=== PATIENT | male | born 1950 | race Caucasian/White ===

== ENCOUNTER → 2018-04-13 09:09 | Outpatient (CLI) | payer MEDICARE, OTHER, SELFPAY ==
--- NOTE | 2018-04-13 10:00 | MRI_ITS ---
STUDY: MRI BRAIN WITHOUT CONTRAST REASON FOR EXAM: Male, 67 years old. ataxia; PLEASE COMMENT ON PERIAQUEDUCTAL AREA AND MAMMILLARY BODIES ; PT WITH HISTORY OF ALCOHOL ABUSE TECHNIQUE: Standardized multiplanar fat and water weighted pulse sequences were obtained. COMPARISON: November 10, 2012 FINDINGS: Normal size of the ventricles and extra-axial spaces for the patient's age. Normal white matter tracts of the supratentorial brain. Normal bilateral basal ganglia. Normal thalami. There is no extra-axial fluid accumulation. Normal flow voids within the major intracranial circulation suggesting patency by spin echo criteria. Normal sella turcica, pituitary gland, infundibular stalk, optic chiasm and hypothalamus. Normal tectal plate and pineal gland. A mammillary body is seen on series 3 image 14 and appears normal. The mamillary bodies are not seen on any other sequence due to their small size. The periaqueductal desouza matter is normal. Normal midbrain, crow and medulla. Normal cerebellum. Normal basal cisterns. Normal bilateral temporal bones. Normal bilateral internal auditory canals. No demonstrated orbital abnormality, within the constraints of a routine brain study. Normal visualized paranasal sinuses. Normal calvarium and skull base. Normal visualized soft tissue structures. Normal visualized upper cervical spine. MRI/Brain without Contrast IMPRESSION: Involutional changes of the brain, as described above. Electronically Signed: Laura Arroyo MD at 10:47 EDT , Service support ,
== END ==
PROVIDERS: Family Provider Internal Medicine; PCP Internal Medicine; Visit Provider Psychiatry & Neurology Neurology
DX: R27.0 Ataxia, unspecified (principal)
CPT/HCPCS: 70551

== ENCOUNTER 2021-11-11 11:58 | Outpatient (CLI) | payer MEDICARE, OTHER, SELFPAY ==
--- NOTE | 2021-11-11 12:06 | MRI_ITS ---
STUDY: MRI ABDOMEN WITH AND WITHOUT CONTRAST REASON FOR EXAM: Male, 71 years old. CIRRHOSIS TECHNIQUE: Standardized fat and water weighted pulse sequences were obtained in all 3 orthogonal planes post contrast administration. IV Yes YES was administered for the contrast portion of the examination. COMPARISON: None. FINDINGS: The visualized lung bases are unremarkable. The visualized portions of the heart are within normal limits. There is a diffuse contour abnormality of the liver consistent with cirrhotic changes. There are multiple gallstones. There is mild splenomegaly. Normal pancreas. Normal bilateral adrenal glands. 2 cm partially exophytic cyst of the posterior cortex of the midsection of right kidney. Normal left kidney. Normal visualized stomach. Normal small intestine. Normal colon. The appendix is visualized and appears normal. Normal abdominal aorta. Normal inferior vena cava. Normal retroperitoneum. Normal abdominal wall. Normal osseous structures. MRI/MRI Abd WITH and W/O Contrast IMPRESSION: 1. Cirrhosis. No hepatic mass. 2. Cholelithiasis. 3. Mild splenomegaly consistent with portal hypertension. Electronically Signed: Konrad Mullen MD at 14:21 EST Tel , Service support ,
[2021-11-12 07:46] LABS: CREATININE FINGERSTICK < 0.6 mg/dL (0.70-1.30); EGFR FINGERSTICK > 60.0000 mL/min (>60)
== END 2021-11-11 23:59 | disposition short-term general hospital (02) ==
LOC: MRI 12:00
PROVIDERS: PCP Internal Medicine; Visit Provider Internal Medicine Gastroenterology
DX: K74.60 Unspecified cirrhosis of liver (principal)
CPT/HCPCS: 74183; A9575; A4216

== ENCOUNTER → 2022-06-04 | Outpatient (CLI) | payer MEDICARE, OTHER, SELFPAY ==
[2022-06-04 15:01] LABS: Hematocrit 44.9 % (40-54); Hemoglobin 15.5 g/dL (13.0-16.5); Mean Corp Hgb Conc 34.5 g/dL (32-36); Mean Corpuscular Hgb 28.9 pg (27.0-32.0); Mean Corpuscular Volume 83.6 fL (80-94); Platelet Count 144 K/mm3 (150-450); RBC Distribution Width CV 14.2 % (11.6-14.6); RBC Distribution Width SD 43.2 fl (35.1-43.9); Red Blood Count 5.37 M/mm3 (4.6-6.2); White Blood Count 4.5 K/mm3 (4.4-11.0)
[2022-06-04 15:13] LABS: International Normalized Ratio 1.1; Prothrombin Time (Protime)PT. 13.4 SECONDS (11.7-14.9)
[2022-06-04 15:19] LABS: ALB/GLOB Ratio 1.1 RATIO (0.9-2.4); AST(SGOT) 27 U/L (15-37); Alanine Aminotransfer ALT/SGPT 25 U/L (16-61); Alkaline Phosphatase 60 U/L (45-117); Anion Gap 7 (5-15); BUN 8 mg/dL (7-18); Calcium,Total 9.2 mg/dL (8.5-10.1); Chloride 100 mmol/L (98-107); Creatinine, Serum 0.67 mg/dL (0.70-1.30); EST Glomerular Filtration Rate 124 mL/min (>60); Est Glom Filt Rate - Afr Amer 149 mL/min (>60); Globulin 3.6 g/dL (2.2-4.2); Glucose 97 mg/dL (74-106); Potassium 4.2 mmol/L (3.5-5.1); Protein, Total 7.6 g/dL (6.4-8.2); Sodium Level 135 mmol/L (136-145)
[2022-06-04 15:56] LABS: Hepatitis C Antibody Non-Reactive (Nonreactive)
[2022-06-06 10:53] LABS: AFP, Tumor Marker 4.8 ng/mL (0.0-8.4)
== END | disposition home or self-care (01) ==
LOC: MTLAB 11:49
PROVIDERS: PCP Internal Medicine; Referring Provider Internal Medicine Gastroenterology; Visit Provider Internal Medicine Gastroenterology
DX: K74.60 Unspecified cirrhosis of liver (principal)
CPT/HCPCS: 36415; 80053; 82105; 85027; 85610; 85730; 86803

== ENCOUNTER → 2022-10-01 | Outpatient (CLI) | payer MEDICARE, OTHER, SELFPAY ==
[2022-10-01 12:14] LABS: Hematocrit 38.1 % (40-54); Hemoglobin 13.4 g/dL (13.0-16.5); Mean Corp Hgb Conc 35.2 g/dL (32-36); Mean Corpuscular Hgb 30.9 pg (27.0-32.0); Mean Platelet Vol. 10.4 fl (6.2-12.0); Platelet Count 159 K/mm3 (150-450); RBC Distribution Width CV 14.8 % (11.6-14.6); RBC Distribution Width SD 47.7 fl (35.1-43.9); Red Blood Count 4.33 M/mm3 (4.6-6.2); White Blood Count 4.7 K/mm3 (4.4-11.0)
[2022-10-01 12:31] LABS: International Normalized Ratio 1.2; Prothrombin Time (Protime)PT. 15.1 SECONDS (11.7-14.9)
[2022-10-01 12:36] LABS: AST(SGOT) 237 U/L (15-37); Alanine Aminotransfer ALT/SGPT 151 U/L (16-61); Albumin, Serum 3.8 g/dL (3.2-5.0); Alkaline Phosphatase 80 U/L (45-117); Bilirubin, Direct 0.86 mg/dL (0.00-0.30); GGTP 652 U/L (15-85); Globulin 2.6 g/dL (2.2-4.2); Protein, Total 6.4 g/dL (6.4-8.2)
[2022-10-02 09:02] LABS: AFP, Tumor Marker 3.9 ng/mL (0.0-8.4)
== END | disposition home or self-care (01) ==
LOC: MTLAB 10:54
PROVIDERS: PCP Internal Medicine; Referring Provider Internal Medicine Gastroenterology; Visit Provider Internal Medicine Gastroenterology
DX: K74.60 Unspecified cirrhosis of liver (principal)
CPT/HCPCS: 36415; 80076; 82105; 82977; 85027; 85610; 85730

== ENCOUNTER → 2023-01-22 | Outpatient (CLI) | payer MEDICARE, OTHER, SELFPAY ==
--- NOTE | 2023-01-22 07:12 | US_ITS ---
INDICATION: CIRRHOSIS EXAMINATION: Ultrasound US Abdomen Limited (quadrant) TECHNIQUE: Clark-scale and color Doppler imaging was performed of the abdomen. COMPARISON: Liver ultrasound October 21, 2016. FINDINGS: LIVER: Nodular contour and coarsened echotexture throughout the liver nodular contour and coarsened echotexture consistent with cirrhotic liver. No focal hepatic lesion. No intrahepatic biliary ductal dilatation. GALLBLADDER AND BILIARY TREE: No shadowing gallstone, pericholecystic fluid or gallbladder wall thickening is demonstrated. There is minimal sludge. The proximal common bile duct measures 5, which is within normal limits for the patient''s age. SONOGRAPHIC CANALES''S SIGN: Negative. PANCREAS: No abnormality is within limits of the exam. Pancreas is suboptimally visualized. KIDNEY: Right kidney measures 12.6 cm in length and shows normal contour and echogenicity. No cortical thinning. 7 x 7 x 6 mm echogenic focus mid right kidney central parenchyma likely represents angiomyolipoma, unchanged compared to prior exam. VESSELS: Normal direction color flow in the portal vein. , Aorta is normal diameter. There is no free fluid. US/Abdomen Limited IMPRESSION: Cirrhotic liver with no focal mass lesion. Trace sludge in the gallbladder crushable clinical significance. Subcentimeter echogenic focus right kidney likely representing angiomyolipoma. Electronically Signed: Bijan Garcia DO at 23:24 EDT ,
== END | disposition home or self-care (01) ==
LOC: US 07:10
PROVIDERS: PCP Internal Medicine; Referring Provider Internal Medicine Gastroenterology; Visit Provider Internal Medicine Gastroenterology
DX: K74.60 Unspecified cirrhosis of liver (principal)
CPT/HCPCS: 76705

== ENCOUNTER → 2023-04-07 | Outpatient (CLI) | payer MEDICARE, OTHER, SELFPAY ==
--- NOTE | 2023-04-07 08:40 | ART_ITS ---
Reason For Study: Abnormal GUILLERMO bilateral Procedure A bilateral lower extremity continuous wave Doppler with analog waveform analysis,segmental pressures,and ankle brachial indexes with exercise. Left Segmental Pressures Left brachial= 139mmHg. Left posterior tibial artery = 156mmHg. Left dorsalis pedis artery = 152mmHg. Left digit = 157 mmHg. The left posterior tibial artery waveforms are triphasic. The left dorsalis pedis waveforms are triphasic. Right Segmental Pressures Right brachial= 135mmHg. Right posterior tibial artery = 128mmHg. Right dorsalis pedis artery = 1.16mmHg. Right digit = 1.24 mmHg. The right posterior tibial artery waveforms are triphasic. The right dorsalis pedis waveforms are triphasic. Indices The right ankle brachial index by the posterior tibial artery is 0.92. The right ankle brachial index by the dorsalis pedis is 1.16. The right digital-brachial index is 1.24. The left ankle brachial index by the posterior tibial artery is 1.12. The left ankle brachial index by the dorsalis pedis is 1.09. The left digital-brachial index is 1.13. VL/Lower Ext Art Exam w/ Exercise Interpretation Summary Right GUILLERMO 1.16, normal. TBI and Doppler/PVR waveforms of the right leg normal a t rest. Right lower extremity exhibits normal response to exercise. Left GUILLERMO 1.12, normal. TBI and Doppler/PVR waveforms of the left leg normal at rest. Left lower extremity exhibits normal response to exercise. Ordering Physician: Radha Andres Referring Physician: Radha Andres M.D. Performed By: Mykel Carbajal RVT
== END | disposition home or self-care (01) ==
LOC: CVS 08:38
PROVIDERS: PCP Internal Medicine; Referring Provider Internal Medicine; Visit Provider Internal Medicine
DX: I73.9 Peripheral vascular disease, unspecified (principal); R68.89 Other general symptoms and signs
CPT/HCPCS: 93924

== ENCOUNTER → 2025-01-27 | Outpatient (CLI) | payer MEDICARE, OTHER, SELFPAY ==
[2025-01-27 15:38] LABS: Hematocrit 41.8 % (40-54); Hemoglobin 14.7 g/dL (13.0-16.5); Mean Corp Hgb Conc 35.2 g/dL (32-36); Mean Corpuscular Hgb 31.1 pg (27.0-32.0); Mean Corpuscular Volume 88.6 fL (80-94); Mean Platelet Vol. 10.6 fl (6.2-12.0); Platelet Count 134 K/mm3 (150-450); RBC Distribution Width CV 13.3 % (11.6-14.6); RBC Distribution Width SD 43.1 fl (35.1-43.9); Red Blood Count 4.72 M/mm3 (4.6-6.2); White Blood Count 5.8 K/mm3 (4.4-11.0)
[2025-01-27 15:43] LABS: International Normalized Ratio 1.2; Prothrombin Time (Protime)PT. 15.1 SECONDS (11.7-14.9)
[2025-01-27 15:45] LABS: Partial Thromboplast Time 32.9 Seconds (24.1-36.2)
[2025-01-27 16:15] LABS: ALB/GLOB Ratio 1.5 RATIO (0.9-2.4); AST(SGOT) 31 U/L (<=37); Alanine Aminotransfer ALT/SGPT 17 U/L (<=46); Albumin, Serum 4.4 g/dL (3.4-4.8); Alkaline Phosphatase 101 U/L (40-129); Anion Gap 15 (5-15); BUN 9 mg/dL (4-19); BUN/Creat Ratio 11.3 RATIO (10-20); Calcium,Total 9.4 mg/dL (7.6-11.0); Carbon Dioxide 25.2 mmol/L (21.0-32.0); Chloride 95 mmol/L (98-108); Creatinine, Serum 0.77 mg/dL (0.70-1.20); EST Glomerular Filtration Rate 93 (>60); Glucose 365 mg/dL (70-99); Protein, Total 7.4 g/dL (5.9-8.4); Sodium Level 135 mmol/L (133-145)
[2025-01-29 07:06] LABS: AFP, Tumor Marker 5.3 ng/mL (0.0-8.4)
== END | disposition home or self-care (01) ==
LOC: MTLAB 14:11
PROVIDERS: PCP Internal Medicine; Referring Provider Internal Medicine Gastroenterology; Visit Provider Internal Medicine Gastroenterology
DX: K74.60 Unspecified cirrhosis of liver (principal)
CPT/HCPCS: 36415; 80053; 82105; 85027; 85610; 85730

== ENCOUNTER → 2025-02-09 | Outpatient (CLI) | payer MEDICARE, OTHER, SELFPAY ==
--- NOTE | 2025-02-09 09:58 | US_ITS ---
PROCEDURE: ABDOMEN LIMITED 02/09/2025 REASON FOR EXAM: CIRRHOSIS COMPARISON: Comparison is made with prior study dated January 22, 2023. FINDINGS: Liver: Diffusely echogenic suggesting fatty infiltration. Hepatomegaly. The liver measures 21.4 cm. Gallbladder: No stones sludge wall thickening or tenderness. Common bile duct: Normal measuring 5 mm. Pancreas: Visualized portions are unremarkable. The distal body and tail are obscured by bowel gas. Other: Visualized portions of the right kidney are unremarkable. No right upper quadrant ascites. US/Abdomen Limited IMPRESSION: Hepatomegaly and diffuse fatty infiltration of the liver. Reading Location: [facility]
== END | disposition home or self-care (01) ==
LOC: US 09:54
PROVIDERS: PCP Internal Medicine; Referring Provider Internal Medicine Gastroenterology; Visit Provider Internal Medicine Gastroenterology
DX: K74.60 Unspecified cirrhosis of liver (principal)
CPT/HCPCS: 76705

== ENCOUNTER → 2025-04-04 | Outpatient (CLI) | payer MEDICARE, OTHER, SELFPAY ==
--- NOTE | 2025-04-04 09:42 | US_ITS ---
PROCEDURE: ABDOMEN LIMITED 04/04/2025 REASON FOR EXAM: R/O ASCITES KNOWN ALCOHOLIC CIRRHOSIS TECHNIQUE: Complete abdominal ultrasound rodriguez-scale images with color doppler. PATIENT PREPARATION: Per protocol COMPARISON: None FINDINGS: The 4 quadrants were assessed for ascites. No ascites is seen at this time. US/Abdomen Limited IMPRESSION: No evidence of ascites at this time. Reading Location: [facility]
== END | disposition home or self-care (01) ==
LOC: US 09:42
PROVIDERS: PCP Internal Medicine; Referring Provider Internal Medicine; Visit Provider Internal Medicine
DX: R14.0 Abdominal distension (gaseous) (principal)
CPT/HCPCS: 76705

== ENCOUNTER → 2025-09-06 | Outpatient (CLI) | payer MEDICARE, OTHER, SELFPAY ==
--- NOTE | 2025-09-06 08:52 | US_ITS ---
PROCEDURE: ABDOMEN LIMITED 09/06/2025 REASON FOR EXAM: CIRRHOSIS COMPARISON: 04/04/25 FINDINGS: GALLBLADDER: multiple gallstones. no gallbladder wall thickening or pericholecystic fluid. Negative Jc sign. COMMON BILE DUCT: Measures 3.4 mm. No intrahepatic biliary dilatation. LIVER: Enlarged to 18.5 cm. Increased and heterogenous echotexture with lobular contour. No definite hepatic mass. RIGHT KIDNEY: Normal in size and echogenicity. No mass. No urinary stones. No hydronephrosis. US/Abdomen Limited IMPRESSION: Cirrhosis. Hepatomegaly. Cholelithiasis without acute cholecystitis. Reading Location: [facility]
== END | disposition home or self-care (01) ==
LOC: US 08:44
PROVIDERS: PCP Internal Medicine; Referring Provider Internal Medicine Gastroenterology; Visit Provider Internal Medicine Gastroenterology
DX: K74.60 Unspecified cirrhosis of liver (principal)
CPT/HCPCS: 76705